=== PATIENT | male | born 1960 | race Caucasian/White ===

== ENCOUNTER 2016-04-09 10:26 | Outpatient (CLI) | payer MEDICAID | END 2016-04-09 10:27 | disposition home or self-care (01) | DX: M16.11 Unilateral primary osteoarthritis, right hip (principal); M25.551 Pain in right hip ==

== ENCOUNTER 2016-05-31 10:55 | Outpatient (CLI) | payer MEDICAID | END 2016-05-31 10:56 | disposition home or self-care (01) | DX: I10 Essential (primary) hypertension (principal); D64.9 Anemia, unspecified ==

== ENCOUNTER 2016-06-05 11:24 | Outpatient (CLI) | payer MEDICAID | END 2016-06-05 11:25 | DX: N18.2 Chronic kidney disease, stage 2 (mild) (principal); D64.9 Anemia, unspecified; R73.9 Hyperglycemia, unspecified ==

== ENCOUNTER 2016-10-28 10:02 | Outpatient (CLI) | payer MEDICAID ==
--- NOTE | 2016-10-28 12:59 | XRAY Report ---
THREE VIEW RIGHT KNEE: 10/28/2016 CLINICAL INDICATION: Joint pain. FINDINGS: AP, lateral, and sunrise views of the right knee demonstrate no evidence of fracture or di slocation. A moderate effusion is present. The joint spaces appear unremarkable. IMPRESSION: MODERATE EFFUSION. NO EVIDENCE OF FRACTURE. JOB #: [id number] EXT JOB #:[id number]
== END 2016-10-28 10:03 | disposition home or self-care (01) ==
LOC: DI.N 10:02
PROVIDERS: ATTEND Physician Assistant
DX: M25.461 Effusion, right knee (principal)

== ENCOUNTER 2018-01-24 15:12 | Outpatient (CLI) | payer MEDICAID | END 2018-01-24 15:13 | disposition critical access hospital (66) | LOC: EMS 15:12 | PROVIDERS: ATTEND Surgery | DX: R53.1 Weakness (principal); W10.8XXA Fall (on) (from) other stairs and steps, initial encounter; Y93.01 Activity, walking, marching and hiking; Y92.028 Other place in mobile home as the place of occurrence of the external cause | CPT/HCPCS: A0425; A0429; A0999 ==

== ENCOUNTER 2018-01-24 15:32 | Emergency (ER) | payer MEDICAID ==
[2018-01-24] MEDS ORDERED: SODIUM CHLORIDE 0.9% 1,000 ML IV ONE ×4 (15:46→17:56)
--- NOTE | 2018-01-24 15:46 | ED Physician Documentation ---
PD HPI FOCAL NEURO - Stated complaint Stated Complaint: WEAKNESS - Chief complaint Chief Complaint: General - History obtained from History obtained from: Patient - History of Present Illness Timing - onset: How many months ago (4-6) Timing - duration: Months (4-6) Timing - details: Gradual onset Severity of deficit: Moderate Weakness: Other (generalized weakness of muscles progressively for the past 6 months, to point of needing to use borrowed walker to get around. Today, he slipped and fell outdoors and was unable to get back up. EMS came and lifted him. No injuries. Brought to ER due to weakness/ trouble walking.) Associated symptoms: Other. No: Headache, Nausea / vomiting, Back pain, Fever Contributing factors: positive: Other (chronic alcoholism, and does not plan/desire to stop at this point). negative: Anticoagulated, Vascular dz Baseline status: positive: Walker (the past 2-3 months) Recently seen: Not recently seen Review of Systems Constitutional: denies: Fever, Chills Nose: denies: Rhinorrhea / runny nose, Congestion Throat: denies: Sore throat Cardiac: denies: Chest pain / pressure, Palpitations Respiratory: denies: Dyspnea, Cough Skin: denies: Rash, Lesions Musculoskeletal: denies: Neck pain, Back pain Neurologic: reports: Generalized weakness (most notable in legs/walking, but also arms and trunk). denies: Focal weakness, Numbness, Near syncope, Altered mental status, Headache Endocrine: denies: Weight loss, Weight gain PD PAST MEDICAL HISTORY - Past Medical History Cardiovascular: Hypertension, High cholesterol Respiratory: None Endocrine/Autoimmune: None Psych: None Musculoskeletal: Osteoarthritis - Past Surgical History Past Surgical History: No - Present Medications Home Medications: Ambulatory Orders Medication Instructions Recorded Confirmed Lisinopril 40 mg PO DAILY 01/16/16 01/16/16 Lovastatin 20 mg PO DAILY 01/16/16 01/16/16 amLODIPine [Norvasc] 5 mg PO DAILY #30 tablet 01/16/16 Folic Acid 1 mg PO DAILY #30 tablet 01/24/18 Lorazepam [Ativan] 1 mg PO Q8H PRN #20 tablet 01/24/18 Multivitamin [Multiple Vitamins] 1 each PO DAILY #60 tablet 01/24/18 Thiamine [Vitamin B-1] 100 mg PO DAILY #30 tablet 01/24/18 - Allergies Allergies/Adverse Reactions: Allergies Allergy/AdvReac Type Severity Reaction Status Date / Time lisinopril Allergy Severe Edema Verified 01/24/18 15:39 codeine Allergy Unknown Verified 01/24/18 15:39 - Living Situation Living Situation: reports: Alone (in a trailer) Living Arrangement: reports: At home - Social History Does the pt smoke?: Yes Smoking Status: Current every day smoker Does the pt drink ETOH?: No Does the pt have substance abuse?: No - POLST Patient has POLST: No PD ED PE NORMAL - Vitals Vital signs reviewed: Yes - General General: Alert and oriented X 3, No acute distress, Well developed/nourished, Other (smell of alcohol on breath.) - HEENT HEENT: Ears normal, Pharynx benign. No: Moist mucous membranes, Dentition benign - Neck Neck: Supple, no meningeal sign, No adenopathy - Cardiac Cardiac: RRR, No murmur - Respiratory Respiratory: Clear bilaterally - Abdomen Abdomen: Normal bowel sounds, Soft, Non tender, Non distended - Male Male : Deferred - Rectal Rectal: Deferred - Back Back: No CVA TTP, No spinal TTP - Derm Derm: Normal color, Warm and dry - Extremities Extremities: No tenderness to palpate, Normal ROM s pain, No edema, No calf tenderness / cord - Neuro Neuro: Alert and oriented X 3, head of advertising 2-12 intact, No motor deficit (lying in bed, he is able to lift legs up and hold them in air, has 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 He does have wobbly gait and seems more central muscle weakness, needing walker for assistance. ), No sensory deficit, Normal speech Eye Opening: Spontaneous Motor: Obeys Commands Verbal: Oriented GCS Score: 15 - Psych Psych: Normal mood, Normal affect Results - Vitals Vitals: Vital Signs - 24 hr 01/24/18 01/24/18 01/24/18 15:33 15:53 16:15 Temperature 36.7 C Heart Rate 115 H 107 H 102 H Respiratory 16 16 16 Rate Blood Pressure 157/107 H 163/95 H 168/101 H O2 Saturation 98 97 97 01/24/18 01/24/18 18:46 21:31 Temperature 37 C Heart Rate 107 H 120 H Respiratory 16 16 Rate Blood Pressure 181/109 H 160/95 H O2 Saturation 98 97 Oxygen O2 Source Room air - Labs Labs: Laboratory Tests 01/24/18 01/24/18 01/24/18 15:45 15:45 15:45 WBC 5.3 RBC 3.73 L Hgb 14.0 Hct 40.5 L MCV 108.4 H MCH 37.5 H MCHC 34.6 RDW 15.3 H Plt Count 315 MPV 7.1 L Neut # (Auto) 2.8 Lymph # (Auto) 2.0 Young # (Auto) 0.3 Eos # (Auto) 0.1 Baso # (Auto) 0.1 Absolute Nucleated RBC 0.00 Nucleated RBC % 0.0 ESR Sodium 142 Potassium 3.4 L Chloride 104 Carbon Dioxide 22 Anion Gap 16.0 H BUN 10 Creatinine 1.0 Estimated GFR (MDRD) 77 L Glucose 139 H Lactic Acid Calcium 8.7 Phosphorus Magnesium 1.7 Total Bilirubin 0.3 AST 53 H ALT 25 Alkaline Phosphatase 75 Total Protein 6.8 Albumin 3.4 Globulin 3.4 Albumin/Globulin Ratio 1.0 Lipase 24 Vitamin B12 Folate TSH 2.25 Urine Color Urine Clarity Urine pH Ur Specific [place] Urine Protein Urine Glucose (UA) Urine Ketones Urine Occult Blood Urine Nitrite Urine Bilirubin Urine Urobilinogen Ur Leukocyte Esterase Ur Microscopic Review Urine Culture Comments Ethyl Alcohol 224.1 Serum Ketones 01/24/18 01/24/18 01/24/18 15:45 15:45 15:45 WBC RBC Hgb Hct MCV MCH MCHC RDW Plt Count MPV Neut # (Auto) Lymph # (Auto) Young # (Auto) Eos # (Auto) Baso # (Auto) Absolute Nucleated RBC Nucleated RBC % ESR 36 H Sodium Potassium Chloride Carbon Dioxide Anion Gap BUN Creatinine Estimated GFR (MDRD) Glucose Lactic Acid Calcium Phosphorus 3.9 Magnesium Total Bilirubin AST ALT Alkaline Phosphatase Total Protein Albumin Globulin Albumin/Globulin Ratio Lipase Vitamin B12 639 Folate 1.78 L TSH Urine Color Urine Clarity Urine pH Ur Specific [place] Urine Protein Urine Glucose (UA) Urine Ketones Urine Occult Blood Urine Nitrite Urine Bilirubin Urine Urobilinogen Ur Leukocyte Esterase Ur Microscopic Review Urine Culture Comments Ethyl Alcohol Serum Ketones 01/24/18 01/24/18 01/24/18 15:45 15:58 17:24 WBC RBC Hgb Hct MCV MCH MCHC RDW Plt Count MPV Neut # (Auto) Lymph # (Auto) Young # (Auto) Eos # (Auto) Baso # (Auto) Absolute Nucleated RBC Nucleated RBC % ESR Sodium Potassium Chloride Carbon Dioxide Anion Gap BUN Creatinine Estimated GFR (MDRD) Glucose Lactic Acid 4.3 H* 3.1 H* Calcium Phosphorus Magnesium Total Bilirubin AST ALT Alkaline Phosphatase Total Protein Albumin Globulin Albumin/Globulin Ratio Lipase Vitamin B12 Folate TSH Urine Color Urine Clarity Urine pH Ur Specific [place] Urine Protein Urine Glucose (UA) Urine Ketones Urine Occult Blood Urine Nitrite Urine Bilirubin Urine Urobilinogen Ur Leukocyte Esterase Ur Microscopic Review Urine Culture Comments Ethyl Alcohol Serum Ketones NEGATIVE 01/24/18 01/24/18 01/24/18 18:25 19:02 20:30 WBC RBC Hgb Hct MCV MCH MCHC RDW Plt Count MPV Neut # (Auto) Lymph # (Auto) Young # (Auto) Eos # (Auto) Baso # (Auto) Absolute Nucleated RBC Nucleated RBC % ESR Sodium Potassium Chloride Carbon Dioxide Anion Gap BUN Creatinine Estimated GFR (MDRD) Glucose Lactic Acid 2.8 H 3.7 H* Calcium Phosphorus Magnesium Total Bilirubin AST ALT Alkaline Phosphatase Total Protein Albumin Globulin Albumin/Globulin Ratio Lipase Vitamin B12 Folate TSH Urine Color YELLOW Urine Clarity CLEAR Urine pH 6.0 Ur Specific [place] 1.025 Urine Protein NEGATIVE Urine Glucose (UA) NEGATIVE Urine Ketones NEGATIVE Urine Occult Blood NEGATIVE Urine Nitrite NEGATIVE Urine Bilirubin NEGATIVE Urine Urobilinogen 1 (NORMAL) Ur Leukocyte Esterase NEGATIVE Ur Microscopic Review NOT INDICATED Urine Culture Comments NOT INDICATED Ethyl Alcohol Serum Ketones PD MEDICAL DECISION MAKING - ED course Complexity details: reviewed results, re-evaluated patient (Initially after labs/etc, the nurse/tech said the patient was unable to walk unassisted, even with walker. Asked Dr. Gustafson to see the patient, and at that time, the patient was able to go to bathroom and back with his walker (so baseline for him the past couple of months). This seemed to negate the need for hospitalization. 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 Does have elevated lactate but might be metabolic from the alcoholism (UTD reference). No obvious source of infection. consider also effect of statin and will have him stop that med. ), d/w patient Departure - Departure Disposition: 01 Home, Self Care Clinical Impression: Muscle weakness (generalized), Alcoholism, Folate deficiency Condition: Stable Record reviewed to determine appropriate education?: Yes Instructions: ED Weakness [facility] Follow-Up: Micaela Centeno ARNP [Primary Care Provider] - Prescriptions: Folic Acid 1 mg PO DAILY #30 tablet Lorazepam [Ativan] 1 mg PO Q8H PRN #20 tablet PRN Reason: Anxiety Multivitamin [Multiple Vitamins] 1 each PO DAILY #60 tablet Thiamine [Vitamin B-1] 100 mg PO DAILY #30 tablet Comments: Your general weakness may be related to most likely nutritional deficiencies with vitamins and minerals. The chronic alcohol use can cause muscle weakness in addition as well. If you are taking a cholesterol medicine such as a statin, that can cause muscle weakness as well and please discontinue that. I would have you take a multivitamin daily and also an added thiamine and folate supplements. Reduce alcohol and preferentially quit alcohol use. If you do stop drinking, use the Ativan if needed to reduce withdrawal symptoms. Try to eat well nutritionally as well. Follow-up with your primary care in the next week or so, call for an appointment. We will see how much improvement you have in your strength over the next week or 2 with the vitamin supplements. Discharge Date/Time: 01/24/18 21:37
[2018-01-24 15:57] LABS: BASOPHILS # (AUTO) 0.1 10^3/uL (0.0-0.1); BASOPHILS % (AUTO) 1.5 %; EOSINOPHILS # (AUTO) 0.1 10^3/uL (0.0-0.7); EOSINOPHILS % (AUTO) 1.9 %; LYMPHOCYTES % (AUTO) 37.5 %; MEAN CORPUSCULAR HEMOGLOBIN 37.5 pg (27.0-31.0); MEAN CORPUSCULAR HGB CONC 34.6 g/dL (32.0-36.0); MEAN CORPUSCULAR VOLUME 108.4 fL (80.0-94.0); MEAN PLATELET VOLUME 7.1 fL (7.4-11.4); MONOCYTES # (AUTO) 0.3 10^3/uL (0.0-1.0); MONOCYTES % (AUTO) 6.6 %; NEUTROPHILS # (AUTO) 2.8 10^3/uL (1.5-6.6); NEUTROPHILS % (AUTO) 52.5 %; PLT - PLATELET COUNT 315 10^3/uL (130-450); RED BLOOD COUNT 3.73 10^6/uL (4.70-6.10); RED CELL DISTRIBUTION WIDTH 15.3 % (12.0-15.0); WHITE BLOOD COUNT 5.3 x10^3/uL (4.8-10.8)
[2018-01-24 16:14] LABS: ALBUMIN 3.4 g/dL (3.2-5.5); BILIRUBIN,TOTAL 0.3 mg/dL (0.2-1.0); CALCIUM 8.7 mg/dL (8.5-10.3); MAGNESIUM 1.7 mg/dL (1.7-2.8); TOTAL PROTEIN 6.8 g/dL (6.7-8.2)
[2018-01-24 16:38] LABS: FOLATE 1.78 ng/mL (5.90 - >24.8)
--- NOTE | 2018-01-24 16:59 | XRAY Report ---
Reason: chest pain left sided Procedure Date: 01/24/2018 Accession Number: [id number] / [id number] Procedure: XR - Chest 2 View X-Ray CPT Code: 55529 FULL RESULT: EXAM: CHEST RADIOGRAPHY EXAM DATE: 01/24/2018 04:29 PM. CLINICAL HISTORY: Chest pain left sided. COMPARISON: None. TECHNIQUE: 2 views. FINDINGS: Lungs/Pleura: No focal opacities evident. No pleural effusion. No pneumothorax. Normal volumes. Mediastinum: Heart and mediastinal contours are unremarkable. Other: There is bilateral shoulder degenerative disease. IMPRESSION: No acute intrathoracic plain film abnormality. [facility]
[2018-01-24] MEDS ORDERED: FOLIC ACID INJ 1 MG in SODIUM CHLORIDE 0.9% 1,000 ML IV STA (18:26)
[2018-01-24 18:43] LABS: BILIRUBIN,URINE NEGATIVE (NEGATIVE); GLUCOSE, URINE (UA) NEGATIVE (NEGATIVE); KETONES,URINE (UA) NEGATIVE (NEGATIVE); LEUKOCYTE ESTERASE, URINE NEGATIVE (NEGATIVE); NITRITE,URINE NEGATIVE (NEGATIVE); OCCULT BLOOD,URINE NEGATIVE (NEGATIVE); PROTEIN,URINE NEGATIVE (NEGATIVE); UROBILINOGEN,URINE 1 (NORMAL) E.U./dL (NORMAL)
[2018-01-24 18:58] LABS: CLARITY,URINE CLEAR (CLEAR)
[2018-01-24] MEDS ORDERED: ACETAMINOPHEN 325 MG TABLET PO PRN (20:52)
[2018-01-24] MEDS ORDERED: PROCHLORPERAZINE 10 MG/2 ML VIAL IVP PRN (20:52)
[2018-01-24] MEDS ORDERED: ZOLPIDEM 5 MG TABLET PO PRN (20:52)
[2018-01-24] MEDS ORDERED: oxyCODONE 5 MG TABLET PO PRN ×2 (20:52)
[2018-01-24] MEDS ORDERED: PROMETHAZINE 25 MG/1 ML VIAL IM PRN (20:52)
[2018-01-24] MEDS ORDERED: ONDANSETRON 4 MG/2 ML VIAL IVP PRN (20:52)
[2018-01-24] MEDS ORDERED: MULTIVITAMIN TABLET PO STA (20:52)
[2018-01-24] MEDS ORDERED: SODIUM CHLORIDE FLUSH 0.9% 10 ML SYRINGE IVP PRN (20:52)
[2018-01-24] MEDS ORDERED: FAMOTIDINE 20 MG TABLET PO SCH (21:00)
[2018-01-24 21:31] VITALS: BP 160/95
[2018-01-25] MEDS ORDERED: SODIUM CHLORIDE FLUSH 0.9% 10 ML SYRINGE IVP SCH (01:00)
[2018-01-25] MEDS ORDERED: ENOXAPARIN 40 MG/0.4 ML SYRINGE SUBQ SCH (09:00)
[2018-01-25] MEDS ORDERED: amLODIPine 5 MG TABLET PO SCH (09:00)
[2018-01-25] MEDS ORDERED: NON FORMULARY MED (Lovastatin [Lovastatin] 20 MG) PO SCH (09:00)
[2018-01-25] MEDS ORDERED: POLYETHYLENE GLYCOL 3350 17 GM PACKET PO SCH (09:00)
[2018-01-25] MEDS ORDERED: NON FORMULARY MED (Lisinopril [Lisinopril] 40 MG) PO SCH (09:00)
== END 2018-01-24 21:37 | disposition home or self-care (01) ==
LOC: EDUNIT# → ED 15:32
DX: M62.81 Muscle weakness (generalized) (principal); F10.20 Alcohol dependence, uncomplicated; E53.8 Deficiency of other specified B group vitamins; I10 Essential (primary) hypertension; F17.200 Nicotine dependence, unspecified, uncomplicated
CPT/HCPCS: 36415; 71046; 80053; 80320; 81003; 82009; 82607; 82746; 83605; 83690; 83735; 84100; 84443; 85025; 85651; 99283; 99284; A9270; 81001; 84425; 87086